=== PATIENT | female | born 1995 | race Hispanic/Latino ===

== ENCOUNTER 2022-01-19 01:00 | Emergency (ER) | payer MEDICAID, OTHER ==
[~2022-01-19] VITALS: Ht 149.9 cm; Wt 94.3 kg
[2022-01-19 01:56] LABS: BASOPHILS % (AUTO) 0.3 % (0.0-5.0); EOSINOPHILS % (AUTO) 0.9 % (0.0-8.0); HEMATOCRIT 37.9 % (36-48); LYMPHOCYTES % (AUTO) 22.6 % (21.0-51.0); MEAN CORPUSCULAR HEMOGLOBIN 28.9 pg (27.0-33.0); MEAN CORPUSCULAR HGB CONC 34.8 g/dL (32.0-36.0); MEAN CORPUSCULAR VOLUME 83.1 fL (79-99); MONOCYTES % (AUTO) 7.9 % (3.0-13.0); NEUTROPHILS % (AUTO) 67.9 % (40.0-77.0); PLATELET COUNT (AUTO) 265 K/uL (130-400); RED BLOOD CELL COUNT(AUTO) 4.56 MIL/uL (4.00-5.50); RED CELL DISTRIBUTION WIDTH 13.5 % (11.0-15.5); WHITE BLOOD COUNT (AUTO) 13.7 K/uL (4.8-10.8)
[2022-01-19 01:59] LABS: APPEARANCE,URINE CLEAR (CLEAR); BILIRUBIN,URINE NEGATIVE (NEGATIVE); COLOR,URINE YELLOW (YELLOW); GLUCOSE, URINE (UA) NEGATIVE (NEGATIVE); KETONES,URINE >=80 mg/dL (NEGATIVE); LEUKOCYTE ESTERASE ,URINE NEGATIVE (NEGATIVE); NITRATE,URINE NEGATIVE (NEGATIVE); OCCULT BLOOD,URINE SMALL (NEGATIVE); PH,URINE 5.5 (5.0-8.0); PROTEIN,URINE NEGATIVE (NEGATIVE); UROBILINOGEN,URINE 0.2 mg/dL (0.2-1.0)
[2022-01-19 02:03] LABS: RBC,URINE 0-1 /HPF (0-1)
[2022-01-19 02:04] LABS: BACTERIA,URINE Few /HPF (None Seen); SQUAMOUS EPITHELIAL CELL,UR Moderate /HPF (0-2)
[2022-01-19 02:07] LABS: CREATININE 0.6 mg/dL (0.5-1.5); POTASSIUM 3.5 mmol/L (3.5-5.1)
[2022-01-19 02:11] LABS: ALBUMIN 3.4 g/dL (3.5-5.0); TOTAL PROTEIN, SERUM 7.5 g/dL (6.0-8.3)
[2022-01-19 04:25] VITALS: BP 125/69
== END 2022-01-19 04:30 | disposition home or self-care (01) ==
LOC: EDH 01:00
DX: O26.91 Pregnancy related conditions, unspecified, first trimester (principal); R10.2 Pelvic and perineal pain; Z3A.01 Less than 8 weeks gestation of pregnancy; Z88.0 Allergy status to penicillin
CPT/HCPCS: 36415; 76801; 80053; 81001; 85025

== ENCOUNTER 2022-03-27 07:01 | Emergency (ER) | payer OTHER ==
[~2022-03-27] VITALS: Ht 149.9 cm; Wt 95.3 kg
[2022-03-27 07:41] VITALS: BP 133/87
== END 2022-03-27 07:55 | disposition home or self-care (01) ==
LOC: EDH 07:01
DX: O26.92 Pregnancy related conditions, unspecified, second trimester (principal); M25.531 Pain in right wrist; O36.8120 Decreased fetal movements, second trimester, not applicable or unspecified; Z3A.17 17 weeks gestation of pregnancy; Z88.0 Allergy status to penicillin

== ENCOUNTER 2022-11-16 17:12 | Observation (INO) | payer OTHER ==
[~2022-11-16] VITALS: Ht 149.9 cm; Wt 88.5 kg
[2022-11-16] MEDS ORDERED: LIDOCAINE HCL 2% VISCOUS 15 ML UDCUP PO ONE (18:00)
[2022-11-16] MEDS ORDERED: 0.9%NACL 1000ML 1,000 ML IV ONE (18:00)
[2022-11-16] MEDS ORDERED: ONDANSETRON 4MG INJ IVP ONE (18:00)
[2022-11-16] MEDS ORDERED: MAG/ALUM/SIMETH 30 ML UDCUP PO ONE (18:00)
[2022-11-16 18:07] LABS: BASOPHILS % (AUTO) 0.3 % (0.0-5.0); HEMATOCRIT 37.1 % (36-48); LYMPHOCYTES % (AUTO) 24.5 % (21.0-51.0); MEAN CORPUSCULAR HGB CONC 32.9 g/dL (32.0-36.0); MEAN CORPUSCULAR VOLUME 82.1 fL (79-99); MONOCYTES % (AUTO) 5.8 % (3.0-13.0); PLATELET COUNT (AUTO) 326 K/uL (130-400); RED BLOOD CELL COUNT(AUTO) 4.52 MIL/uL (4.00-5.50); WHITE BLOOD COUNT (AUTO) 9.3 K/uL (4.8-10.8)
[2022-11-16] MEDS: MORPHINE 4 MG SYG IVP ONE ×2 (18:08→18:40)
[2022-11-16 18:16] LABS: CREATININE 0.6 mg/dL (0.5-1.5); POTASSIUM 4.4 mmol/L (3.5-5.1)
[2022-11-16 18:21] LABS: ALBUMIN 3.5 g/dL (3.5-5.0); TOTAL PROTEIN, SERUM 6.9 g/dL (6.0-8.3)
[2022-11-16] MEDS ORDERED: LACTULOSE 20 GM/30 ML UDCUP PO PRN (19:00)
[2022-11-16] MEDS ORDERED: ONDANSETRON 4MG INJ IVP PRN (19:00)
[2022-11-16] MEDS: 0.9%NACL 1000ML 1,000 ML IV SCH (20:02)
[2022-11-16] MEDS: LEVOFLOXACIN 500 MG/D5W 100 ML 100 ML IV SCH (20:02)
[2022-11-16] MEDS: MORPHINE 2 MG SYG IV PRN (20:07)
[2022-11-16] MEDS: FAMOTIDINE 20MG VIAL IV SCH (20:09)
[2022-11-16] MEDS ORDERED: KETOROLAC 15MG/ML VIAL (15MG/ML) IV ONE (21:00)
[2022-11-16 22:38] VITALS: BP 119/78
[2022-11-16 22:39] LABS: APPEARANCE,URINE CLEAR (CLEAR); BILIRUBIN,URINE NEGATIVE (NEGATIVE); COLOR,URINE LIGHT-YELLOW (YELLOW); GLUCOSE, URINE (UA) NEGATIVE (NEGATIVE); KETONES,URINE NEGATIVE (NEGATIVE); LEUKOCYTE ESTERASE ,URINE NEGATIVE Leu/uL (NEGATIVE); NITRATE,URINE NEGATIVE (NEGATIVE); OCCULT BLOOD,URINE NEGATIVE (NEGATIVE); PH,URINE 6.5 (5.0-8.0); PROTEIN,URINE NEGATIVE (NEGATIVE); UROBILINOGEN,URINE 0.2 mg/dL (0.2-1.0)
[2022-11-16 22:43] LABS: HCG,QUALITATIVE URINE NEGATIVE (NEGATIVE)
[2022-11-17] VITALS (21 sets, daily range): BP systolic 110–153; BP diastolic 71–90
[2022-11-17] MEDS: METRONIDAZOLE 500MG/100ML BAG 100 ML IVPB SCH ×4 (00:09→21:25)
[2022-11-17] MEDS: FAMOTIDINE 20MG VIAL IV SCH ×2 (08:17→21:25)
[2022-11-17] MEDS ORDERED: BUPIVACAINE/PF 0.5% 30ML VIAL ONE (08:40)
[2022-11-17] MEDS ORDERED: DEXAMETHASONE SOD PHOSPHATE 10MG/ML 1ML VIAL ONE (08:50)
[2022-11-17] MEDS ORDERED: SUCCINYLCHOLINE CHLORIDE 20 MG/ML 10 ML VIAL ONE (08:50)
[2022-11-17] MEDS ORDERED: LIDOCAINE PF 100MG/5ML (2%) SYRINGE 5ML ONE (08:50)
[2022-11-17] MEDS ORDERED: MIDAZOLAM HCL 1 MG/ML 2ML VIAL ONE (08:51)
[2022-11-17] MEDS ORDERED: GLYCOPYRROLATE 1 MG/5 ML SYRINGE ONE (08:52)
[2022-11-17] MEDS ORDERED: ROCURONIUM 10MG/1ML SYR 10 MG/ML ML ONE (08:52)
[2022-11-17] MEDS ORDERED: ONDANSETRON 4MG INJ ONE (08:52)
[2022-11-17] MEDS ORDERED: PROPOFOL 10 MG/ML 20ML VIAL IV ONE (08:52)
[2022-11-17] MEDS ORDERED: NEOSTIGMINE 5MG/5ML SYR IV ONE (08:52)
[2022-11-17] MEDS ORDERED: FENTANYL CITRATE PF 50 MCG/1 ML 2ML VIAL ONE ×2 (08:53→09:56)
[2022-11-17] MEDS ORDERED: LIDOCAINE HCL-MPF 2% 10ML AMP IJ ONE (09:31)
[2022-11-17] MEDS ORDERED: KETOROLAC 30MG VIAL (30MG/ML) ONE (09:32)
[2022-11-17] MEDS ORDERED: MEPERIDINE-PF 25 MG/ML SYG ONE (10:06)
[2022-11-17] MEDS: MORPHINE 2 MG SYG IV PRN (12:25)
[2022-11-17] MEDS: 0.9%NACL 1000ML 1,000 ML IV SCH (15:00)
[2022-11-17] MEDS ORDERED: HYDRALAZINE 20MG/ML VIAL IV PRN (15:30)
[2022-11-17] MEDS: LEVOFLOXACIN 500 MG/D5W 100 ML 100 ML IV SCH (19:26)
[2022-11-17] MEDS ORDERED: KETOROLAC 30MG VIAL (30MG/ML) IVP PRN (20:00)
[2022-11-18] MEDS: MORPHINE 2 MG SYG IV PRN (01:04)
[2022-11-18 04:18] VITALS: BP 125/75
[2022-11-18 05:57] LABS: BASOPHILS % (AUTO) 0.2 % (0.0-5.0); EOSINOPHILS % (AUTO) 0.7 % (0.0-8.0); HEMATOCRIT 31.6 % (36-48); LYMPHOCYTES % (AUTO) 34.3 % (21.0-51.0); MEAN CORPUSCULAR HEMOGLOBIN 27.1 pg (27.0-33.0); MEAN CORPUSCULAR HGB CONC 33.2 g/dL (32.0-36.0); MEAN CORPUSCULAR VOLUME 81.7 fL (79-99); MONOCYTES % (AUTO) 6.1 % (3.0-13.0); NEUTROPHILS % (AUTO) 58.4 % (40.0-77.0); PLATELET COUNT (AUTO) 308 K/uL (130-400); RED BLOOD CELL COUNT(AUTO) 3.87 MIL/uL (4.00-5.50); RED CELL DISTRIBUTION WIDTH 14.5 % (11.0-15.5)
[2022-11-18] MEDS: METRONIDAZOLE 500MG/100ML BAG 100 ML IVPB SCH (06:29)
[2022-11-18 06:44] LABS: CREATININE 0.7 mg/dL (0.5-1.5); POTASSIUM 3.5 mmol/L (3.5-5.1); TOTAL PROTEIN, SERUM 6.4 g/dL (6.0-8.3)
[2022-11-18 07:30] VITALS: BP 124/79
== END 2022-11-18 10:35 | disposition still patient (30) ==
LOC: EDH 17:12 → INTOOBSV 18:55 → EDHIP 18:55 → 3BH 22:18
PROVIDERS: ADMIT Hospitalist; ATTEND Hospitalist
DX: K80.00 Calculus of gallbladder with acute cholecystitis without obstruction (principal); Z20.822 Contact with and (suspected) exposure to COVID-19; R79.89 Other specified abnormal findings of blood chemistry; Z79.899 Other long term (current) drug therapy; Z98.890 Other specified postprocedural states
CPT/HCPCS: 99285; 96365; 96375; 76705; 80053 ×2; 83690; 85025 ×2; 81003; 81025; 36415 ×2; 47562; 87635; 96376 ×2; 96366 ×2; 96367; 83735; J3490 ×10; J1956 ×2; J7030 ×3; J2405 ×2; J2270; J1885 ×2; A6207; J3010 ×2; J1100; J2710; J0330; J2001; J2250; J2704; J2175; A6206; C1769 ×3; A4649 ×2; A4223; A4222; A4216; G0378